=== PATIENT | female | born 1975 | race Caucasian/White ===

== ENCOUNTER 2021-02-23 19:13 | Inpatient (IN) ==
[2021-02-23 20:24] LABS: Hematocrit (blood only) 40.8 % (37-47); Hemoglobin 13.6 g/dL (12.0-16.0); Mean Corpuscular Hemoglobin 31.1 pg (25-34); Mean Corpuscular Hgb Conc 33.3 g/dL (32-36); Mean Corpuscular Volume 93.2 fL (80-100); Mean Platelet Volume 10.7 fL (7.4-10.4); Platelet Count 237 K/uL (130-400); RDW Coefficient of Variation 13.1 % (11.5-14.5); RDW Standard Deviation 44.8 fL (36.4-46.3); Red Blood Count 4.38 M/uL (4.2-5.4); White Blood Count 23.03 K/uL (4.8-10.8)
--- NOTE | 2021-02-23 20:32 | XRay Report ---
XR chest 1V portable CLINICAL HISTORY: weakness. Evaluate cardiopulmonary status COMPARISON STUDY: No previous studies for comparison. TECHNIQUE: 1 view of the chest FINDINGS: Single frontal view of the chest demonstrates the cardiomediastinal silhouette to be within normal li mits. The lungs are clear of alveolar opacities. There is no evidence for pleural effusion. There is no evidence for vascular congestion. There is no acute osseous pathology. IMPRESSION: No acute cardiopulmonary disease. ACT 112: Negative or not required by law. Electronically signed by: Michele Pang M.D. 02/23/2021 8:31 PM
[2021-02-23 20:50] LABS: Basophils # (auto) 0.02 K/uL (0-0.2); Basophils % (auto) 0.1 %; Eosinophils # (auto) 0.03 K/uL (0-0.5); Eosinophils % (auto) 0.1 %; Immature Granulocytes # (auto) 0.08 K/uL (0.00-0.02); Immature Granulocytes % (auto) 0.3 %; Lymphocytes # (auto) 0.65 K/uL (1.2-3.4); Lymphocytes % (auto) 2.8 %; Monocytes # (auto) 1.21 K/uL (0.11-0.59); Monocytes % (auto) 5.3 %; Neutrophils # (auto) 21.04 K/uL (1.4-6.5); Neutrophils % (auto) 91.4 %
[2021-02-23 20:56] LABS: Aspartate Aminotransferase 49 U/L (15-37); BUN Creatinine Ratio 18.2 (10-20); Blood Urea Nitrogen 15 mg/dl (7-18); Calcium 9.4 mg/dl (8.5-10.1); Carbon Dioxide 28 mmol/L (21-32); Chloride 103 mmol/L (98-107); Est GFR (African American) 101.8 ml/min; Est GFR (Non-African American) 87.8 ml/min; Glucose 108 mg/dl (70-99); Potassium 3.3 mmol/L (3.5-5.1); Sodium 137 mmol/L (136-145)
[2021-02-23 21:06] LABS: Alanine Aminotransferase 213 U/L (12-78); Albumin Globulin Ratio 0.8 (0.9-2); Alkaline Phosphatase 93 U/L (45-117); Bilirubin,Total 0.7 mg/dl (0.2-1); Globulin 4.8 gm/dl (2.5-4.0); Thyroid Stimulating Hormone 0.386 uIu/ml (0.300-4.500); Total Protein 8.8 gm/dl (6.4-8.2)
[2021-02-23] MEDS ORDERED: ONDANSETRON INJ 2 MG/ML 2 ML VIAL IV STA (21:59)
[2021-02-23] MEDS ORDERED: SODIUM CHLORIDE 0.9% 1000ML 1,000 ML IV ONE (21:59)
[2021-02-23] MEDS ORDERED: SODIUM CHLORIDE 0.9% 1000ML 1,000 ML IV STA (21:59)
--- NOTE | 2021-02-23 22:06 | Emergency Department Note ---
Impression & Plan Syncope, CHI (closed head injury), Acute hypotension, Leukocytosis, Pyelonephritis ED Provider Note INFORMANT: Patient ED PROVIDER(S): Chay Luz MD CHIEF COMPLAINT: Fall PLAN: Disposition: Admitted Condition: Good Outpatient prescription management: none Referral: None MEDICAL DECISION MAKING: Patient presented because of a fall and syncope. She did note urinary symptoms. The patient underwent a work-up. She was found to have a significant leukocytosis. She did respond well to fluid hydration. Her ECG did show sinus tachycardia with PACs. The patient did have a slight elevation of her LFTs. TSH was negative. CT imaging of her head did not reveal any acute pathology. Imaging of her abdomen and pelvis was negative for acute pathology. Specifically no trauma. The patient's urinalysis was concerning for infection. Given the back pain, urinary symptoms, leukocytosis and low blood pressure I am concerned about pyelonephritis. The patient was treated with a dose of aztreonam initially as she does have an allergy to cephalosporins. I discussed further management in the hospital and the patient was in agreement. Consultation was made with Dr. Kishore Polanco, [facility] hospitalist service. Patient was evaluated in the ER for further management. Triage Nursing notes reviewed and agree them. Vital Signs: reviewed and remarkable for hypotension and tachycardia Differential diagnosis: Sepsis, UTI, pneumonia, metabolic, electrolyte abnormalities, cardiac sources, intracerebral event, toxicologic, neurologic, as well as other pathologies. Diagnostics interpreted by me: ECG: Twelve-lead ECG was sinus tachycardia 105 bpm. There are PACs present. Le ft axis deviation and incomplete right bundle branch block. No ST elevation. Cardiac Monitoring: Cardiac monitoring ordered by me: The patient was placed on continuous cardiac monitoring and observed. It revealed a normal sinus rhythm at 91 beats per minute without ectopy or evidence of dysrhythmia. Imaging studies: Head CT and CT scan of the abdomen pelvis as noted above. I refer you to the EMR for further details. Chest x-ray. Findings: A chest x-ray was performed and revealed no pneumothorax, effusion, infiltrate, pulmonary edema, free air under the diaphragm, or wide mediastinum. Impression: No acute disease. HPI: The patient is a [age] year old female who presents to the Emergency Room with complaints of a fall. This started today and is associated with syncope. The patient states that she was lightheaded and fell over in the bathtub. She felt generally ill. She called an ambulance and was taken to the [facility]. She was placed in the waiting room as they were full and after waiting about 6 hours she left without being seen. The patient was brought to our emergency department for further evaluation. The patient also notes the following associated symptoms, low back pain, low abdominal pain, frontal headache from impact, dysuria and difficulty urinating. The patient has taken no medication for relieving factors. Current pain is rated as 5/10. Pt denies fevers, chills, diaphoresis, visual changes, neck pain, chest pain, breathing difficulties, nausea, vomiting, melena, hematochezia,numbness, weakness, lymphadenopathy, rash, or other complaints. ROS: See above HPI for pertinent positives & negatives. A total of 10 systems reviewed and were otherwise negative. PAST MEDICAL HISTORY:See Below , patient denies PAST SURGICAL HISTORY:See Below, FAMILY HISTORY:See Below SOCIAL HISTORY:See Below, smoker HOME MEDICATIONS:See Below ALLERGIES:See Below VITALS:See Below PHYSICAL EXAMINATION: GENERAL: Awake, alert, uncomfortable-appearing, in no distress HENT: Normocephalic, right frontal contusion present. Oropharynx unremarkable. EYES: Normal conjunctiva. Sclera non-icteric. NECK: Inspection normal. Non-tender. Supple. No nuchal rigidity. FROM. No masses. RESPIRATORY: Clear to auscultation. No wheezes. No rales. Normal respiratory effort. CARDIAC: Normal rate. Normal rhythm. No murmurs. No rubs. Extremities warm and well perfused. Pulses equal. No JVD. GI: Soft, non-distended. Bilateral lower tenderness to palpation. No rebound or guarding. No masses. RECTAL: Deferred. MUSCULOSKELETAL: Atraumatic. Chest examination reveals no tenderness. The back is symmetrical on inspection without obvious abnormality. There is left CVA tenderness to palpation. No joint edema. LOWER EXTREMITIES: Calves are equal size bilaterally and non-tender. No edema. No discoloration. NEURO: Normal sensorium. No sensory or motor deficits noted. SKIN: No rash or jaundice noted. Chay Luz MD Past Med/Surg History Social History Smoking Status: Current every day smoker Feels Safe at Home: Yes Allergies Allergies Allergy/AdvReac Type Severity Reaction Status Date / Time cephalexin Allergy Severe Hives Verified 02/23/21 21:47 Home Meds Home Medications Medication Instructions Recorded Confirmed No Known Home Medications 02/23/21 02/23/21 Results & Data (ED) Vital Signs Vital Signs - 24 hr 02/23/21 19:32 02/23/21 20:12 02/23/21 22:00 Temperature 37.3 C Temperature Source Temporal Artery Scan Pulse Rate - Sitting 99 H Pulse Rate - Standing 100 H Pulse Rate 116 H 91 H Pulse Rate [Left Finger] Pulse Rhythm Regular Pulse Rhythm [Left Finger] Pulse Strength [Left Finger] Respiratory Rate 19 20 Respiratory Effort / Characteristics Non-Labored Spontaneous Respiratory Depth Normal Respiratory Pattern Regular Blood Pressure - Sitting 102/78 Blood Pressure- Standing 111/76 Blood Pressure 95/53 L Blood Pressure [Right Arm] Blood Pressure Mean 67 Blood Pressure Mean [Right Arm] Blood Pressure Position [Right Arm] Pulse Oximetry 99 100 Oxygen Delivery Method Room Air Room Air Sepsis Recent Fever Within 48 Hours No Sepsis New/Unexplained Change in Mental Status N/A Sepsis Action Taken by Nursing No Action Required 02/23/21 22:01 Temperature Temperature Source Pulse Rate - Sitting Pulse Rate - Standing Pulse Rate Pulse Rate [Left Finger] 91 H Pulse Rhythm Pulse Rhythm [Left Finger] Regular Pulse Strength [Left Finger] Normal Respiratory Rate 14 Respiratory Effort / Characteristics Non-Labored Spontaneous Respiratory Depth Normal Respiratory Pattern Regular Blood Pressure - Sitting Blood Pressure- Standing Blood Pressure Blood Pressure [Right Arm] 116/68 Blood Pressure Mean Blood Pressure Mean [Right Arm] 84 Blood Pressure Position [Right Arm] Sitting Pulse Oximetry 99 Oxygen Delivery Method Room Air Sepsis Recent Fever Within 48 Hours Sepsis New/Unexplained Change in Mental Status Sepsis Action Taken by Nursing Laboratory Data Result diagrams: 02/23/21 20:14 02/23/21 20:14 Lab Results 02/23/21 02/23/21 02/23/21 Range/Units 20:14 20:14 22:14 WBC 23.03 H (4.8-10.8) K/uL RBC 4.38 (4.2-5.4) M/uL Hgb 13.6 (12.0-16.0) g/dL Hct 40.8 (37-47) % MCV 93.2 (80-100) fL MCH 31.1 (25-34) pg MCHC 33.3 (32-36) g/dL RDW Std Deviation 44.8 (36.4-46.3) fL RDW Coeff of Pilar 13.1 (11.5-14.5) % Plt Count 237 (130-400) K/uL MPV 10.7 H (7.4-10.4) fL Immature Gran % (Auto) 0.3 % Neut % (Auto) 91.4 % Lymph % (Auto) 2.8 % Keith % (Auto) 5.3 % Eos % (Auto) 0.1 % Baso % (Auto) 0.1 % Neut # (Auto) 21.04 H (1.4-6.5) K/uL Lymph # (Auto) 0.65 L (1.2-3.4) K/uL Keith # (Auto) 1.21 H (0.11-0.59) K/uL Eos # (Auto) 0.03 (0-0.5) K/uL Baso # (Auto) 0.02 (0-0.2) K/uL Immature Gran # (Auto) 0.08 H (0.00-0.02) K/uL Sodium 137 (136-145) mmol/L Potassium 3.3 L (3.5-5.1) mmol/L Chloride 103 (98-107) mmol/L Carbon Dioxide 28 (21-32) mmol/L Anion Gap 7.0 (3-11) BUN 15 (7-18) mg/dl Creatinine 0.80 (0.6-1.2) mg/dl Est Cr Clr Drug Dosing Not Reportable Est GFR ( Amer) 101.8 ml/min Est GFR (Non-Af Amer) 87.8 ml/min BUN/Creatinine Ratio 18.2 (10-20) Glucose 108 H (70-99) mg/dl Lactate (0.4-2.0) mmol/L Calcium 9.4 (8.5-10.1) mg/dl Magnesium 2.0 (1.8-2.4) mg/dl Total Bilirubin 0.7 (0.2-1) mg/dl AST 49 H (15-37) U/L ALT 213 H (12-78) U/L Alkaline Phosphatase 93 (45-117) U/L Total Protein 8.8 H (6.4-8.2) gm/dl Albumin 4.0 (3.4-5.0) gm/dl Globulin 4.8 H (2.5-4.0) gm/dl Albumin/Globulin Ratio 0.8 L (0.9-2) TSH 0.386 (0.300-4.500) uIu/ml Urine Color Urine Appearance (Clear) Urine pH (4.5-7.5) Ur Specific [place] (1.000-1.030) Urine Protein (Negative) Urine Glucose (UA) (Negative) Urine Ketones (Negative) Urine Blood (Negative) Urine Nitrite (Negative) Urine Bilirubin (Negative) Urine Urobilinogen (Negative) Ur Leukocyte Esterase (Negative) Urine WBC (Auto) (0-5) /hpf Urine RBC (Auto) (0-4) /hpf U Hyaline Cast (Auto) (0-5) /lpf U Epithel Cells (Auto) (0-5) /lpf Urine Bacteria (Auto) (Negative) SARS-CoV-2, RNA, NAAT NEGATIVE (NEGATIVE) 02/23/21 02/24/21 Range/Units 23:10 00:55 WBC (4.8-10.8) K/uL RBC (4.2-5.4) M/uL Hgb (12.0-16.0) g/dL Hct (37-47) % MCV (80-100) fL MCH (25-34) pg MCHC (32-36) g/dL RDW Std Deviation (36.4-46.3) fL RDW Coeff of Pilar (11.5-14.5) % Plt Count (130-400) K/uL MPV (7.4-10.4) fL Immature Gran % (Auto) % Neut % (Auto) % Lymph % (Auto) % Keith % (Auto) % Eos % (Auto) % Baso % (Auto) % Neut # (Auto) (1.4-6.5) K/uL Lymph # (Auto) (1.2-3.4) K/uL Keith # (Auto) (0.11-0.59) K/uL Eos # (Auto) (0-0.5) K/uL Baso # (Auto) (0-0.2) K/uL Immature Gran # (Auto) (0.00-0.02) K/uL Sodium (136-145) mmol/L Potassium (3.5-5.1) mmol/L Chloride (98-107) mmol/L Carbon Dioxide (21-32) mmol/L Anion Gap (3-11) BUN (7-18) mg/dl Creatinine (0.6-1.2) mg/dl Est Cr Clr Drug Dosing Est GFR ( Amer) ml/min Est GFR (Non-Af Amer) ml/min BUN/Creatinine Ratio (10-20) Glucose (70-99) mg/dl Lactate 1.1 (0.4-2.0) mmol/L Calcium (8.5-10.1) mg/dl Magnesium (1.8-2.4) mg/dl Total Bilirubin (0.2-1) mg/dl AST (15-37) U/L ALT (12-78) U/L Alkaline Phosphatase (45-117) U/L Total Protein (6.4-8.2) gm/dl Albumin (3.4-5.0) gm/dl Globulin (2.5-4.0) gm/dl Albumin/Globulin Ratio (0.9-2) TSH (0.300-4.500) uIu/ml Urine Color Yellow Urine Appearance Clear (Clear) Urine pH 8.5 H (4.5-7.5) Ur Specific [place] > 1.045 H (1.000-1.030) Urine Protein Negative (Negative) Urine Glucose (UA) Negative (Negative) Urine Ketones Negative (Negative) Urine Blood Negative (Negative) Urine Nitrite Positive A (Negative) Urine Bilirubin Negative (Negative) Urine Urobilinogen Negative (Negative) Ur Leukocyte Esterase Negative (Negative) Urine WBC (Auto) 5-10 H (0-5) /hpf Urine RBC (Auto) 0-4 (0-4) /hpf U Hyaline Cast (Auto) 1-5 (0-5) /lpf U Epithel Cells (Auto) >30 H (0-5) /lpf Urine Bacteria (Auto) 4+ H (Negative) SARS-CoV-2, RNA, NAAT (NEGATIVE) Administered Medications Sodium Chloride (Nss 1000ml) 1,000 mls @ 125 mls/hr IV .Q8H STA Stop: 02/24/21 05:58 Last Admin: 02/24/21 01:00 Dose: 125 mls/hr Documented by: [id number] Discontinued Medications Sodium Chloride (Nss 1000ml) 1,000 mls @ 999 mls/hr IV .Q1H1M ONE Stop: 02/23/21 22:59 Last Infusion: 02/23/21 23:06 Dose: 0 mls/hr Documented by: [id number] Admin: 02/23/21 22:05 Dose: 999 mls/hr Documented by: [id number] Aztreonam 2,000 mg/ Dextrose 110 mls @ 100 mls/hr IV NOW STA; Protocol Stop: 02/24/21 02:05 Last Infusion: 02/24/21 02:33 Dose: 0 mls/hr Documented by: [id number] Admin: 02/24/21 01:25 Dose: 100 mls/hr Documented by: [id number] Ioversol (Optiray 320 100ml) 94 ml IV ONCE ONE Stop: 02/24/21 00:04 Last Admin: 02/24/21 00:04 Dose: 94 ml Documented by: [id number] Ondansetron HCl (Ondansetron Inj 2 Mg/Ml 2 Ml Vial) 4 mg IV NOW STA Stop: 02/23/21 22:00 Last Admin: 02/23/21 22:12 Dose: 4 mg Documented by: [id number] Imaging Data Radiologist's Impression: Chest X-Ray 02/23/21 19:52 XR chest 1V portable CLINICAL HISTORY: weakness. Evaluate cardiopulmonary status COMPARISON STUDY: No previous studies for comparison. TECHNIQUE: 1 view of the chest FINDINGS: Single frontal view of the chest demonstrates the cardiomediastinal silhouette to be within normal limits. The lungs are clear of alveolar opacities. There is no evidence for pleural effusion. There is no evidence for vascular congestion. There is no acute osseous pathology. IMPRESSION: No acute cardiopulmonary disease. ACT 112: Negative or not required by law. Electronically signed by: Michele Pang M.D. 02/23/2021 8:31 PM Discharge Plan Visit Data Chief Complaint: Fall Stated Complaint: FALL ED Provider: Chay Luz Discharge Problem: Syncope, CHI (closed head injury), Acute hypotension, Leukocytosis, Pyelonephritis Forms Stand Alone Forms: [facility] [email or web address] Prescriptions Prescriptions: No Action No Known Home Medications RF: 0 Referrals Referrals: PCP,NO [Physician] -
[2021-02-24] MEDS ORDERED: OPTIRAY 320 100ml IV ONE (00:03)
[2021-02-24] MEDS ORDERED: AZTREONAM 2,000 MG in DEXTROSE 5% 100 ML IV STA (01:00)
[2021-02-24 01:38] LABS: Appearance Urine Clear (Clear); Bacteria Urine Automated 4+ (Negative); Bilirubin Urine Negative (Negative); Blood Urine Negative (Negative); Color Urine Yellow; Epithelial Cell Urine Auto >30 /lpf (0-5); Glucose Urine UA Negative (Negative); Ketones Urine Negative (Negative); Leukocyte Esterase Urine Negative (Negative); Nitrite Urine Positive (Negative); Protein Urine Negative (Negative); RBC Urine Automated 0-4 /hpf (0-4); Specific Gravity Urine > 1.045 (1.000-1.030); Urobilinogen Urine Negative (Negative); pH Urine 8.5 (4.5-7.5)
[2021-02-24] MEDS ORDERED: POTASSIUM CHLORIDE CRTAB 20 MEQ TABCR PO STA (02:32)
--- NOTE | 2021-02-24 03:01 | History & Physical Report ---
Date of Service February 24, 2021 Assessment & Plan (1) Sepsis: Plan: Secondary to complicated UTI Syncope likely secondary to orthostasis given hypotension upon arrival at the ER Rule out cardiac pathology schizophrenia/mood disorder, stable off maintenance medications as per patient hx HCV, patient yet to see GI specialist to discuss treatment options prediabetes, hemoglobin A1c of 5.31 Jul 2020 hx substance abuse as per records Hypokalemia secondary to emesis ongoing tobacco abuse Medical telemetry CS, Azactam IVF TTE RE syncope Replace potassium Nicotine patch as needed DVT prophylaxis. Lovenox subcu Full code Text document was generated using [email or web address] voice recognition software. It may contain grammatical or spelling errors. Kindly contact undersigned for clarification of any documentation item in question. History of Present Illness Chief Complaint: Syncope, fall, back pain Primary Care Provider: Kayleigh Edwards History obtained from patient and records. Medical history significant for schizophrenia, mood disorder, hx HCV, hyperlipidemia, prediabetes, substance abuse, ongoing tobacco abuse. Patient not feeling well since yesterday. Woke up with achy lower abdominal pain with dysuria symptoms. Poor appetite. Nausea, emesis. Lightheadedness. Possible syncopal event without chest pain, S OB. Head trauma and back pain going down the legs post fall. No unusual leg weakness/bowel or bladder incontinence. Patient initially went to [facility] ER but later decided to go to [facility] because of long ED wait time. Initial SBP at the ER 90s. Patient received Azactam for sepsis. 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 Allergies Allergy/AdvReac Type Severity Reaction Status Date / Time cephalexin Allergy Severe Hives Verified 02/23/21 21:47 Home Medications Medication Instructions Recorded Confirmed Type No Known Home Medications 02/23/21 02/23/21 History Past Med/Surg History Social History Smoking Status: Current every day smoker Cigarettes Per Day: 1/2 pack; Hx Alcohol Use: No Hx Substance Use: Yes Preferred Language: Palestinian Communication Ability: Effective Dinkey Locomotive Operator Required: No Beliefs That Will Affect Care: None Current Living Situation: Significant Other Other Information That Helps Us Care for You: No Feels Safe at Home: Yes Assistive Devices: None Review of Systems Review of Systems: As per HPI, all 10 systems reviewed, all other ROS negative Physical Exam Physical Exam: GENERAL: Comfortable, intermittent lethargy, pleasant, no respiratory distress SKIN: Normal color, warm HEENT: Blairs palpebral conjunctivae, no ptosis, dry buccal mucosa NECK : Supple, no tenderness CHEST : CTA, no tenderness HEART : RRR, no obvious murmurs ABDOMEN: Some distention, minimal hypogastric tenderness BACK : Low back tenderness, negative straight leg raise test EXTREMITIES : No LE swelling/tenderness, no other conspicuous deformities noted NEUROLOGIC : Coherent, intermittent lethargy, no facial asymmetry, no other gross focality Results & Data Results & Data ([facility]) Vital Signs (Past 12 Hours) Vital Signs Temp Pulse Pulse Resp BP BP Pulse Ox 02/23/21 22:01 91 H 14 116/68 99 02/23/21 22:00 91 H 20 100 02/23/21 19:32 37.3 C 116 H 19 95/53 L 99 Laboratory Results Laboratory Results WBC 23.03 K/uL (4.8-10.8) H 02/23/21 20:14 RBC 4.38 M/uL (4.2-5.4) 02/23/21 20:14 Hgb 13.6 g/dL (12.0-16.0) 02/23/21 20:14 Hct 40.8 % (37-47) 02/23/21 20:14 MCV 93.2 fL (80-100) 02/23/21 20:14 MCH 31.1 pg (25-34) 02/23/21 20:14 MCHC 33.3 g/dL (32-36) 02/23/21 20:14 RDW Std Deviation 44.8 fL (36.4-46.3) 02/23/21 20:14 RDW Coeff of Pilar 13.1 % (11.5-14.5) 02/23/21 20:14 Plt Count 237 K/uL (130-400) 02/23/21 20:14 MPV 10.7 fL (7.4-10.4) H 02/23/21 20:14 Immature Gran % (Auto) 0.3 % 02/23/21 20:14 Neut % (Auto) 91.4 % 02/23/21 20:14 Lymph % (Auto) 2.8 % 02/23/21 20:14 Powell % (Auto) 5.3 % 02/23/21 20:14 Eos % (Auto) 0.1 % 02/23/21 20:14 Baso % (Auto) 0.1 % 02/23/21 20:14 Neut # (Auto) 21.04 K/uL (1.4-6.5) H 02/23/21 20:14 Lymph # (Auto) 0.65 K/uL (1.2-3.4) L 02/23/21 20:14 Powell # (Auto) 1.21 K/uL (0.11-0.59) H 02/23/21 20:14 Eos # (Auto) 0.03 K/uL (0-0.5) 02/23/21 20:14 Baso # (Auto) 0.02 K/uL (0-0.2) 02/23/21 20:14 Immature Gran # (Auto) 0.08 K/uL (0.00-0.02) H 02/23/21 20:14 Sodium 137 mmol/L (136-145) 02/23/21 20:14 Potassium 3.3 mmol/L (3.5-5.1) L 02/23/21 20:14 Chloride 103 mmol/L (98-107) 02/23/21 20:14 Carbon Dioxide 28 mmol/L (21-32) 02/23/21 20:14 Anion Gap 7.0 (3-11) 02/23/21 20:14 BUN 15 mg/dl (7-18) 02/23/21 20:14 Creatinine 0.80 mg/dl (0.6-1.2) 02/23/21 20:14 Est Cr Clr Drug Dosing Not Reportable 02/23/21 20:14 Est GFR ( Amer) 101.8 ml/min 02/23/21 20:14 Est GFR (Non-Af Amer) 87.8 ml/min 02/23/21 20:14 BUN/Creatinine Ratio 18.2 (10-20) 02/23/21 20:14 Glucose 108 mg/dl (70-99) H 02/23/21 20:14 Lactate 1.1 mmol/L (0.4-2.0) 02/23/21 23:10 Calcium 9.4 mg/dl (8.5-10.1) 02/23/21 20:14 Magnesium 2.0 mg/dl (1.8-2.4) 02/23/21 20:14 Total Bilirubin 0.7 mg/dl (0.2-1) 02/23/21 20:14 AST 49 U/L (15-37) H 02/23/21 20:14 ALT 213 U/L (12-78) H 02/23/21 20:14 Alkaline Phosphatase 93 U/L (45-117) 02/23/21 20:14 Total Protein 8.8 gm/dl (6.4-8.2) H 02/23/21 20:14 Albumin 4.0 gm/dl (3.4-5.0) 02/23/21 20:14 Globulin 4.8 gm/dl (2.5-4.0) H 02/23/21 20:14 Albumin/Globulin Ratio 0.8 (0.9-2) L 02/23/21 20:14 TSH 0.386 uIu/ml (0.300-4.500) 02/23/21 20:14 Urine Color Yellow 02/24/21 00:55 Urine Appearance Clear (Clear) 02/24/21 00:55 Urine pH 8.5 (4.5-7.5) H 02/24/21 00:55 Ur Specific [place] > 1.045 (1.000-1.030) H 02/24/21 00:55 Urine Protein Negative (Negative) 02/24/21 00:55 Urine Glucose (UA) Negative (Negative) 02/24/21 00:55 Urine Ketones Negative (Negative) 02/24/21 00:55 Urine Blood Negative (Negative) 02/24/21 00:55 Urine Nitrite Positive (Negative) A 02/24/21 00:55 Urine Bilirubin Negative (Negative) 02/24/21 00:55 Urine Urobilinogen Negative (Negative) 02/24/21 00:55 Ur Leukocyte Esterase Negative (Negative) 02/24/21 00:55 Urine WBC (Auto) 5-10 /hpf (0-5) H 02/24/21 00:55 Urine RBC (Auto) 0-4 /hpf (0-4) 02/24/21 00:55 U Hyaline Cast (Auto) 1-5 /lpf (0-5) 02/24/21 00:55 U Epithel Cells (Auto) >30 /lpf (0-5) H 02/24/21 00:55 Urine Bacteria (Auto) 4+ (Negative) H 02/24/21 00:55 SARS-CoV-2, RNA, NAAT NEGATIVE (NEGATIVE) 02/23/21 22:14 Impressions Chest X-Ray 02/23/21 19:52 XR chest 1V portable CLINICAL HISTORY: weakness. Evaluate cardiopulmonary status COMPARISON STUDY: No previous studies for comparison. TECHNIQUE: 1 view of the chest FINDINGS: Single frontal view of the chest demonstrates the cardiomediastinal silhouette to be within normal limits. The lungs are clear of alveolar opacities. There is no evidence for pleural effusion. There is no evidence for vascular congestion. There is no acute osseous pathology. IMPRESSION: No acute cardiopulmonary disease. ACT 112: Negative or not required by law. Electronically signed by: Michele Pang M.D. 02/23/2021 8:[address] head initial read: No skull fracture, acute bleed, infarct, or acute intracranial abnormality. Normal exam CT abdomen pelvis initial read: No parenchymal laceration, pelvic or vertebral fracture or hemoperitoneum. Severe fecal loading of the colon, probable chronic constipation. Limited detail due to paucityof endogenous fat. Probable small hepatic hemangioma right lobe measuring 1 cm. EKG as per my interpretation rate 105, sinus tachycardia, LAD, incomplete RBBB, no ischemia
[2021-02-24] MEDS ORDERED: POTASSIUM CHLORIDE 40 MEQ in SODIUM CHLORIDE 0.9% 1000ML 1,000 ML IV ONE (03:07)
[2021-02-24] MEDS ORDERED: traMADol HCL 50 MG TABLET PO PRN (04:46)
[2021-02-24] MEDS ORDERED: IBUPROFEN 200 MG TAB PO PRN (04:46)
[2021-02-24] MEDS ORDERED: PROMETHAZINE HCL 12.5 MG in SODIUM CHLORIDE 0.9% 50 ML IV PRN (04:46)
[2021-02-24] MEDS ORDERED: ACETAMINOPHEN 325 MG TAB PO PRN ×2 (04:46→04:49)
[2021-02-24] MEDS ORDERED: AZTREONAM CONSULT ACTIVE PRN (04:49)
[2021-02-24] MEDS ORDERED: FLUARIX QUADRIVALENT 0.5 ML SYR IM ONE (06:04)
[2021-02-24 06:16] LABS: Basophils # (auto) 0.02 K/uL (0-0.2); Basophils % (auto) 0.1 %; Eosinophils # (auto) 0.16 K/uL (0-0.5); Eosinophils % (auto) 1.1 %; Hematocrit (blood only) 37.3 % (37-47); Immature Granulocytes # (auto) 0.04 K/uL (0.00-0.02); Immature Granulocytes % (auto) 0.3 %; Lymphocytes # (auto) 1.57 K/uL (1.2-3.4); Lymphocytes % (auto) 10.4 %; Mean Corpuscular Hemoglobin 30.1 pg (25-34); Mean Corpuscular Hgb Conc 32.2 g/dL (32-36); Mean Corpuscular Volume 93.5 fL (80-100); Monocytes # (auto) 1.08 K/uL (0.11-0.59); Monocytes % (auto) 7.2 %; Neutrophils # (auto) 12.18 K/uL (1.4-6.5); Neutrophils % (auto) 80.9 %; Platelet Count 209 K/uL (130-400); RDW Coefficient of Variation 13.5 % (11.5-14.5); RDW Standard Deviation 45.8 fL (36.4-46.3); Red Blood Count 3.99 M/uL (4.2-5.4); White Blood Count 15.05 K/uL (4.8-10.8)
--- NOTE | 2021-02-24 07:05 | CT Scan Report ---
CT SCAN OF THE BRAIN WITHOUT IV CONTRAST CLINICAL HISTORY: Fall. Head injury. COMPARISON STUDY: No priors. TECHNIQUE: Unenhanced axial CT scan of the brain is performed from the vertex to the skull base. A d ose lowering technique was utilized adhering to the principles of ALARA. CT DOSE: 614.27 mGy.cm FINDINGS: Brain parenchyma: The brain parenchyma is normal in appearance. There is no hemorrhage, mass effect, or evidence of acute territorial ischemia by CT criteria. Bunch-white matter differentiation is preser chalino. Suspect a punctate colloid cyst at the roof of the third ventricle. No extra-axial fluid collect ion is seen. Ventricles, sulci, cisterns: Normal in configuration. Intracranial vasculature: The visualized intracranial vasculature at the skull base is normal in appe arance. Calvarium: There is no depressed calvarial fracture. Sinuses and mastoids: The visualized paranasal sinuses are clear. The mastoid air cells are well pneu matized. Orbits: The bony orbits are grossly intact. IMPRESSION: No acute intracranial abnormality. ACT 112: Negative or not required by law. Electronically signed by: Eron Trinidad M.D. 02/24/2021 7:04 AM
[2021-02-24 07:24] LABS: Albumin Globulin Ratio 0.8 (0.9-2); BUN Creatinine Ratio 18.8 (10-20); Bilirubin,Total 0.8 mg/dl (0.2-1); Calcium 8.8 mg/dl (8.5-10.1); Creatinine Clr Calc Pharmacy 105.7 ml/min; Est GFR (African American) 123.2 ml/min; Est GFR (Non-African American) 106.3 ml/min; Globulin 3.9 gm/dl (2.5-4.0); Potassium 3.9 mmol/L (3.5-5.1); Total Protein 6.9 gm/dl (6.4-8.2)
--- NOTE | 2021-02-24 07:29 | CT Scan Report ---
CT SCAN OF THE ABDOMEN AND PELVIS WITH IV CONTRAST CLINICAL HISTORY: Fall. Generalized abdominal pain. Hypotension. COMPARISON STUDY: No priors. TECHNIQUE: Following the IV administration of 94 cc of Optiray 320, CT scan of the abdomen and pelvi s is performed from the lung bases to the proximal femora. Images are reviewed in the axial, sagittal , and coronal planes. IV contrast was administered without complication. A dose lowering technique wa s utilized adhering to the principles of ALARA. The Examination is degraded by a paucity of intraperi toneal fat and lack of enteric contrast. CT DOSE: 271.23 mGy.cm FINDINGS: Lung bases: The heart is normal in size and without pericardial effusion. Emphysematous change is shakira pected. The lung bases are otherwise clear noting dependent atelectasis. Liver: The contrast-enhanced liver is normal in size, contour, and attenuation. There is no intrahepa tic biliary ductal dilatation. The hepatic veins and portal veins are patent. A 1.4 cm right lobe shirley er lesion on image #102 shows foci of peripheral nodular enhancement and likely resents a hemangioma. This is incompletely characterized. Focal fatty infiltration is seen adjacent to the falciform ligam ent. Gallbladder: Unremarkable. Spleen: The spleen is enlarged measuring 14.5 cm in length. Pancreas: Unremarkable. Adrenal glands: Unremarkable. Kidneys: The contrast enhanced kidneys are normal in size and without hydronephrosis. The kidneys enh ance symmetrically. Abdominal vasculature: The abdominal aorta is normal in course and caliber noting scattered foci of a therosclerotic calcification. Bowel: There is moderate constipation. No bowel obstruction is identified. A portion of the normal ap pendix is likely seen in the right lower quadrant on image #320 Peritoneum: There is no intraperitoneal free air or abdominal ascites. There is a small fat-containin g umbilical hernia. Lymphadenopathy: None. Pelvic viscera: The bladder is normal as visualized. The uterus is diminutive versus surgically absen t. No adnexal lesion is seen. Skeletal structures: No lytic or blastic lesions are seen. Posterior disc bulges are noted at L3-L4, L4-L5, and L5-S1. Sclerotic change is noted in the pubic symphysis. IMPRESSION: 1. There are no acute infectious or inflammatory findings in the abdomen or pelvis. 2. There is no evidence of solid organ injury in the abdomen or pelvis. 3. Moderate constipation. 4. Mild splenomegaly. 5. A 1.4 cm right lobe liver lesion is incompletely characterized but likely represents a hemangioma. In the absence of a cancer history this is of doubtful significance. If warranted, ultrasound could be considered for further assessment. 6. Additional findings as above. ACT 112: Negative or not required by law. Electronically signed by: Eron Trinidad M.D. 02/24/2021 7:27 AM
[2021-02-24] MEDS: AZTREONAM 1,000 MG in DEXTROSE 5% 100 ML IV SCH ×2 (08:07→16:36)
[2021-02-24] MEDS: ENOXAPARIN INJ 40 MG/0.4 ML SYR SQ SCH (08:07)
--- NOTE | 2021-02-24 08:53 | Electrocardiogram Report ---
Test Reason : Blood Pressure : / mmHG Vent. Rate : 105 BPM Atrial Rate : 105 BPM P-R Int : 158 ms QRS Dur : 110 ms QT Int : 366 ms P-R-T Axes : 081 -42 069 degrees QTc Int : 483 ms Sinus tachycardia with Premature atrial complexes Left axis deviation Incomplete right bundle branch block Abnormal ECG No previous ECGs available Confirmed by Gael Guevara ([id number]) on 02/24/2021 8:53:33 AM Referred By: REFERRED SELF Confirmed By:Emmett Guevara
[2021-02-24] MEDS: SODIUM CHLORIDE 0.9% 500 ML IV SCH ×2 (13:26→18:27)
--- NOTE | 2021-02-24 16:36 | Hospitalist Progress Note ---
Date of Service February 24, 2021 Assessment & Plan (1) Sepsis: Plan: Sepsis Urinary tract infection --CT ABD:There are no acute infectious or inflammatory findings in the abdomen or pelvis. There is no evidence of solid organ injury in the abdomen or pelvis. Moderate constipation. Mild splenomegaly. . A 1.4 cm right lobe liver lesion is incompletely characterized but likely represents a hemangioma. In the absence of a cancer history this is of doubtful significance. -Blood in urine culture pending Continue Azactam Continue IV fluids Syncope Believes to have LOC for few seconds likely secondary to orthostasis given hypotension and poor oral intake prior to admission -CT Head:No acute intracranial abnormality. Monitor on telemetry Drug screen pending ECHO: No significant valvular pathology. EF 55 to 60%. Left ventricle wall motion is normal. 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 Hypokalemia Replete electrolytes as needed DVT Px; Lovenox SQ Code Status Full code Admission and Anticipated Discharge Date Admission Date: February 24, 2021 Subjective Patient is seen and examined at bedside Back pain much improved Headache, nausea, dysuria resolved States having minimal abdominal discomfort Offers no other complaints Review of Systems Review of Systems: All systems reviewed & are unremarkable except as noted in Subjective Physical Exam Physical Exam: Physical Exam: Vitals signs as noted above General Appearance:Thin, no apparent distress Head: normocephalic, Atraumatic Eyes: normal inspection, EOMI Neck: supple, Trachea midline Respiratory/Chest: Normal breath sounds, CTA Cardiovascular: S1, S2, No murmur Abdomen/GI:Soft, Non tender, Bowel sounds present Extremities/Musculoskeletal:normal inspection, no edema Neurologic/Psych:AAOX3, grossly no focal neurological deficits Skin: normal color, warm Results & Data Results & Data ([facility]) Vital Signs (Past 12 Hours) Vital Signs Temp Pulse Pulse Resp BP BP Pulse Ox 02/24/21 15:36 88/54 L 02/24/21 15:31 82 02/24/21 15:25 36.6 C 75 18 88/52 L 86/46 L 100 02/24/21 08:00 36.3 C L 96 H 18 92/60 L 97 02/24/21 07:22 85 02/24/21 05:00 80 02/24/21 04:46 36.5 C 81 18 111/61 96 Pulse Ox 02/24/21 15:36 02/24/21 15:31 02/24/21 15:25 02/24/21 08:00 02/24/21 07:22 02/24/21 05:00 02/24/21 04:46 96 Laboratory Results Short CBC 02/23/21 02/24/21 Range/Units 20:14 05:57 WBC 23.03 H 15.05 H (4.8-10.8) K/uL Hgb 13.6 12.0 (12.0-16.0) g/dL Hct 40.8 37.3 (37-47) % Plt Count 237 209 (130-400) K/uL BMP 02/23/21 02/24/21 20:14 05:57 Sodium 137 136 Potassium 3.3 L 3.9 D Chloride 103 106 Carbon Dioxide 28 27 BUN 15 12 Creatinine 0.80 0.64 Glucose 108 H 88 Calcium 9.4 8.8 Liver Function 02/23/21 02/24/21 Range/Units 20:14 05:57 Total Bilirubin 0.7 0.8 (0.2-1) mg/dl AST 49 H 34 (15-37) U/L ALT 213 H 154 H (12-78) U/L Alkaline Phosphatase 93 78 (45-117) U/L Albumin 4.0 3.0 L (3.4-5.0) gm/dl Urine 02/24/21 Range/Units 00:55 Urine Color Yellow Urine Appearance Clear (Clear) Urine pH 8.5 H (4.5-7.5) Ur Specific [place] > 1.045 H (1.000-1.030) Urine Protein Negative (Negative) Urine Glucose (UA) Negative (Negative)
[2021-02-25] MEDS: AZTREONAM 1,000 MG in DEXTROSE 5% 100 ML IV SCH ×2 (01:13→08:05)
[2021-02-25 06:09] LABS: Hematocrit (blood only) 35.9 % (37-47); Hemoglobin 11.7 g/dL (12.0-16.0); Mean Corpuscular Hemoglobin 30.5 pg (25-34); Mean Corpuscular Hgb Conc 32.6 g/dL (32-36); Mean Corpuscular Volume 93.5 fL (80-100); Platelet Count 196 K/uL (130-400); RDW Coefficient of Variation 13.4 % (11.5-14.5); RDW Standard Deviation 45.7 fL (36.4-46.3); Red Blood Count 3.84 M/uL (4.2-5.4); White Blood Count 8.05 K/uL (4.8-10.8)
[2021-02-25 06:39] LABS: BUN Creatinine Ratio 17.2 (10-20); Calcium 8.5 mg/dl (8.5-10.1); Creatinine Clr Calc Pharmacy 95.3 ml/min; Est GFR (African American) 117.6 ml/min; Est GFR (Non-African American) 101.4 ml/min; Potassium 3.9 mmol/L (3.5-5.1)
[2021-02-25 07:51] LABS: Amphetamines+Metham, Urine Pos (Neg); Barbiturates, Urine Neg (Neg); Benzodiazepine, Urine Neg (Neg); Cocaine, Urine Neg (Neg); MDMA (Ecstacy), Urine Neg (Neg); Methadone, Urine Neg (Neg); Opiate, Urine Neg (Neg); Phencyclidine, Urine Neg (Neg)
[2021-02-25] MEDS: ENOXAPARIN INJ 40 MG/0.4 ML SYR SQ SCH (08:05)
--- NOTE | 2021-02-25 11:14 | Hospitalist Progress Note ---
Date of Service February 25, 2021 Assessment & Plan (1) Sepsis: Plan: Sepsis Urinary tract infection --CT ABD:There are no acute infectious or inflammatory findings in the abdomen or pelvis. There is no evidence of solid organ injury in the abdomen or pelvis. Moderate constipation. Mild splenomegaly. . A 1.4 cm right lobe liver lesion is incompletely characterized but likely represents a hemangioma. In the absence of a cancer history this is of doubtful significance. -Blood culture: No growth to date -Urine Culture: Gram negative bacilli Continue Azactam Received IV fluids Leukocytosis resolved Patient refuses to remain hospitalized for further care while pending cultures She prefers to sign out against medical advice despite explaining the risks/complications of not completing treatment course She understand but refuses further management. Advised to follow up with PCP upon discharge. Syncope Believes to have LOC for few seconds likely secondary to orthostasis given hypotension and poor oral intake prior to admission -CT Head:No acute intracranial abnormality. Monitor on telemetry Drug screen:Amphetamine/Meth ECHO: No significant valvular pathology. EF 55 to 60%. Left ventricle wall mo tion is normal. 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 Hypokalemia Replete electrolytes as needed DVT Px; Lovenox SQ Code Status Full code Disposition AGAINST MEDICAL ADVICE Admission and Anticipated Discharge Date Admission Date: February 24, 2021 Subjective Patient is seen and examined at bedside States feeling well today Eager to get discharged Urine Culture is pending Still has minimal abdominal discomfort No other complaints Review of Systems Review of Systems: All systems reviewed & are unremarkable except as noted in Subjective Physical Exam Physical Exam: Physical Exam: Vitals signs as noted above General Appearance:Thin, no apparent distress Head: normocephalic, Atraumatic Eyes: normal inspection, EOMI Neck: supple, Trachea midline Respiratory/Chest: Normal breath sounds, CTA Cardiovascular: S1, S2, No murmur Abdomen/GI:Soft, Non tender, Bowel sounds present Extremities/Musculoskeletal:normal inspection, no edema Neurologic/Psych:AAOX3, grossly no focal neurological deficits Skin: normal color, warm Results & Data Results & Data ([facility]) Vital Signs (Past 12 Hours) Vital Signs Temp Pulse Pulse Resp BP BP Pulse Ox 02/25/21 07:47 37.0 C 67 16 119/77 100 02/25/21 07:12 63 02/25/21 04:46 02/25/21 04:10 36.6 C 65 20 100/60 98 Pulse Ox 02/25/21 07:47 02/25/21 07:12 02/25/21 04:46 98 02/25/21 04:10 Laboratory Results Short CBC 02/25/21 Range/Units 05:39 WBC 8.05 (4.8-10.8) K/uL Hgb 11.7 L (12.0-16.0) g/dL Hct 35.9 L (37-47) % Plt Count 196 (130-400) K/uL BMP 02/25/21 05:39 Sodium 136 Potassium 3.9 Chloride 108 H Carbon Dioxide 25 BUN 12 Creatinine 0.71 Glucose 93 Calcium 8.5
--- NOTE | 2021-02-25 13:50 | Discharge Summary ---
Date of Service February 25, 2021 Admission HPI Per Admitting Provider History obtained from patient and records. Medical history significant for schizophrenia, mood disorder, hx HCV, hyperlipidemia, prediabetes, substance abuse, ongoing tobacco abuse. Patient not feeling well since yesterday. Woke up with achy lower abdominal pain with dysuria symptoms. Poor appetite. Nausea, emesis. Lightheadedness. Possible syncopal event without chest pain, S OB. Head trauma and back pain going down the legs post fall. No unusual leg weakness/bowel or bladder incontinence. Patient initially went to [facility] ER but later decided to go to [facility] because of long ED wait time. Initial SBP at the ER 90s. Patient received Azactam for sepsis. 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 Admission Exam Per Admitting Provider Physical Exam Physical Exam: GENERAL: Comfortable, intermittent lethargy, pleasant, no respiratory distress SKIN: Normal color, warm HEENT: [place] palpebral conjunctivae, no ptosis, dry buccal mucosa NECK : Supple, no tenderness CHEST : CTA, no tenderness HEART : RRR, no obvious murmurs ABDOMEN: Some distention, minimal hypogastric tenderness BACK : Low back tenderness, negative straight leg raise test EXTREMITIES : No LE swelling/tenderness, no other conspicuous deformities noted NEUROLOGIC : Coherent, intermittent lethargy, no facial asymmetry, no other gross focality Principal Diagnosis Sepsis Urinary tract infection Syncope Liver Lesion Discharge Data Allergies Allergy/AdvReac Type Severity Reaction Status Date / Time cephalexin Allergy Severe Hives Verified 02/23/21 21:47 Consultations 02/24/21 02:21 ED Decision to Admit Stat Ordered Studies 02/23/21 22:00 CT abd pelvis IV con only Urgent CT head/brain wo con Urgent Hospital Course (1) Sepsis: Sepsis Urinary tract infection --CT ABD:There are no acute infectious or inflammatory findings in the abdomen or pelvis. There is no evidence of solid organ injury in the abdomen or pelvis. Moderate constipation. Mild splenomegaly. . A 1.4 cm right lobe liver lesion is incompletely characterized but likely represents a hemangioma. In the absence of a cancer history this is of doubtful significance. -Blood culture: No growth to date -Urine Culture: Gram negative bacilli Continue Azactam Received IV fluids Leukocytosis resolved Patient refuses to remain hospitalized for further care while pending cultures She prefers to sign out against medical advice despite explaining the risks/complications of not completing treatment course She understand but refuses further management. Advised to follow up with PCP upon discharge. Syncope Believes to have LOC for few seconds likely secondary to orthostasis given hypotension and poor oral intake prior to admission -CT Head:No acute intracranial abnormality. Monitor on telemetry Drug screen:Amphetamine/Meth ECHO: No significant valvular pathology. EF 55 to 60%. Left ventricle wall motion is normal. 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 Hypokalemia Replete electrolytes as needed DVT Px; Lovenox SQ Code Status Full code Disposition AGAINST MEDICAL ADVICE Total Time Total Time Spent Total Time Spent (In Minutes): 40 minutes Discharge Plan Discharge Items Patient Disposition: Against Medical Advice Reason For Visit: SEPSIS, SYNCOPE Activity: Per Instructions section Non-emergency contact: Primary Care Provider Follow-up/Referrals: Kayleigh Edwards PA-C [Primary Care Provider] - (Date & Time 03/03/2021 11:20 AM Provider Kayleigh Edwards PA-C Department [facility] ) 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 Please call if you have any questions or problems. You can reach a [facility] hospitalist on duty at [facility] 24 hours a day by calling [phone] Pending Studies at Discharge: Yes Stand-Alone Forms: My [facility] [employer] Smoking Cessation Medications and DC Order Prescriptions: No Action No Known Home Medications RF: 0 Discharge Orders: Left Against Medical Advice (Routine); Ordered 02/25/21 Ordered By: Alexandru Kim Admission Data Admit Date/Time: 02/24/21 03:04 Attending Provider: Alexandru Kim Admit Provider: Kisohre Polanco Primary Care Provider: Kayleigh Edwards Other Providers: Kishore Polanco Other Interventions: Discharge Summary Assessment (RN) Last Done: 02/25/21 11:28
[2021-02-28 12:21] LABS: Amphetamine Urine, Confirm 2300 ng/mL (<250); Methamphetamine, Ur Confirm 5240 ng/mL (<250)
== END 2021-02-25 13:45 | disposition left against medical advice (07) | DRG 872 ==
LOC: ED 19:13 → 2N 02-24 03:04